=== PATIENT | female | born 1980 | race American Indian/Alaskan Native ===

== ENCOUNTER 2017-10-07 21:53 | Inpatient (IN) | payer OTHER ==
--- NOTE | 2017-10-07 23:27 | XRay Report ---
FINAL REPORT PROCEDURE: XR CHEST ROUTINE 2V TECHNIQUE: PA and lateral chest radiographs were obtained. CPT 03636 HISTORY: CHEST PAIN COMPARISON: No prior studies are available for comparison. FINDINGS: Heart: Normal. Mediastinum/Vessels: Normal. Lungs/Pleural space: Normal. Bony thorax: Moderate degree dextroscoliosis is noted involving the thoracolumbar spine. Other: IMPRESSION: Normal examination.
[2017-10-07 23:31] LABS: Anion Gap 19 mmol/L; BUN/Creatinine Ratio 16; Blood Urea Nitrogen 11 mg/dL (7-17); Calcium 8.8 mg/dL (8.4-10.2); Carbon Dioxide 21 mmol/L (22-30); Chloride 100.8 mmol/L (98-107); Glucose 79 mg/dL (65-100); Potassium 4.1 mmol/L (3.6-5.0); Sodium 137 mmol/L (137-145)
[2017-10-07 23:46] LABS: Eosinophils % (Auto) 0.5 % (0.0-4.3); Hematocrit 34.9 % (30.3-42.9); Hemoglobin 11.2 gm/dl (10.1-14.3); Mean Corpuscular HGB Conc 32 % (30-34); Mean Corpuscular Hemoglobin 26 pg (28-32); Mean Corpuscular Volume 82 fl (79-97); Platelet Count 377 K/mm3 (140-440); Red Blood Count 4.25 M/mm3 (3.65-5.03); White Blood Count 7.4 K/mm3 (4.5-11.0)
--- NOTE | 2017-10-08 10:17 | Emergency Department Report ---
HPI - General Chief Complaint: Chest Pain Time Seen by Provider: 10/08/17 09:59 - HPI HPI: Room 19 The patient is a 37-year-old female presenting with a chief complaint chest pain. The patient states she drove to [place] from [place] yesterday and approximate 4.5 hours into the trip she developed substernal and left upper chest tightness that has been intermittent and associated with shortness of breath. Patient denies nausea/vomiting or diaphoresis. Patient does admit to pleuritic component. The patient states last week she was diagnosed with strep throat given her symptoms of sore throat headache chills and fever. Patient completed a course of Levaquin. The patient states she's never had a stress test or cardiac catheterization Location: Chest Duration: Intermittent since yesterday Quality: Tightness Severity: Currently 0/10 Modifying factors: [see above] Context: [see above] Mode of transportation: [not driving] ED Past Medical Hx - Past Medical History Previous Medical History?: No - Surgical History Past Surgical History?: No - Family History Family history: no significant - Social History Smoking Status: Never Smoker Substance Use Type: None (denies illicit drug use), Alcohol (occasional) - Medications Home Medications: Home Medications Medication Instructions Recorded Confirmed Last Taken Type No Known Home Medications [No 10/08/17 10/08/17 Unknown History Reported Home Medications] ED Review of Systems ROS: Stated complaint: CP Other details as noted in HPI Constitutional: denies: diaphoresis Respiratory: shortness of breath Cardiovascular: chest pain Gastrointestinal: denies: nausea, vomiting Physical Exam - Physical Exam Vital Signs: Vital Signs 10/07/17 10/08/17 10/08/17 22:14 01:37 07:32 Temperature 98.3 F 97.8 F 98.4 F Pulse Rate 79 73 71 Respiratory 16 14 16 Rate Blood Pressure 136/85 127/74 137/87 Blood Pressure [Left] O2 Sat by Pulse 100 100 Oximetry 10/08/17 10/08/17 08:53 08:59 Temperature 98.2 F Pulse Rate 77 86 Respiratory 19 18 Rate Blood Pressure Blood Pressure 133/67 [Left] O2 Sat by Pulse 100 100 Oximetry Physical Exam: GENERAL: The patient is well-developed well-nourished female lying on stretcher not appearing to be in acute distress. [] HEENT: Normocephalic. Atraumatic. Extraocular motions are intact. Patient has moist mucous membranes. NECK: Supple. Trachea midline CHEST/LUNGS: Clear to auscultation. There is no respiratory distress noted. HEART/CARDIOVASCULAR: Regular. There is no tachycardia. There is no gallop rub or murmur. ABDOMEN: Abdomen is soft, nontender. Patient has normal bowel sounds. There is no abdominal distention. SKIN: There is no rash. There is no edema. There is no diaphoresis. NEURO: The patient is awake, alert, and oriented. The patient is cooperative. The patient has normal speech MUSCULOSKELETAL: There is no evidence of acute injury. ED Course Vital Signs 10/07/17 10/08/17 10/08/17 22:14 01:37 07:32 Temperature 98.3 F 97.8 F 98.4 F Pulse Rate 79 73 71 Respiratory 16 14 16 Rate Blood Pressure 136/85 127/74 137/87 Blood Pressure [Left] O2 Sat by Pulse 100 100 Oximetry 10/08/17 10/08/17 08:53 08:59 Temperature 98.2 F Pulse Rate 77 86 Respiratory 19 18 Rate Blood Pressure Blood Pressure 133/67 [Left] O2 Sat by Pulse 100 100 Oximetry ED Medical Decision Making - Lab Data Result diagrams: 10/07/17 22:55 10/07/17 22:55 Laboratory Tests 10/07/17 10/07/17 10/08/17 22:55 22:55 01:18 WBC 7.4 RBC 4.25 Hgb 11.2 Hct 34.9 MCV 82 MCH 26 L MCHC 32 RDW 16.0 H Plt Count 377 Lymph % (Auto) 43.5 H [place] % (Auto) 9.5 H Eos % (Auto) 0.5 Baso % (Auto) 1.0 Lymph # 3.2 Moca # 0.7 Eos # 0.0 Baso # 0.1 Seg Neutrophils % 45.5 Seg Neutrophils # 3.4 Sodium 137 Potassium 4.1 Chloride 100.8 Carbon Dioxide 21 L Anion Gap 19 BUN 11 Creatinine 0.7 Estimated GFR > 60 BUN/Creatinine Ratio 16 Glucose 79 Calcium 8.8 Troponin T < 0.010 < 0.010 10/08/17 04:35 WBC RBC Hgb Hct MCV MCH MCHC RDW Plt Count Lymph % (Auto) [place] % (Auto) Eos % (Auto) Baso % (Auto) Lymph # Moca # Eos # Baso # Seg Neutrophils % Seg Neutrophils # Sodium Potassium Chloride Carbon Dioxide Anion Gap BUN Creatinine Estimated GFR BUN/Creatinine Ratio Glucose Calcium Troponin T < 0.010 - EKG Data -: EKG Interpreted by Me EKG shows normal: sinus rhythm Rate: normal - EKG Data When compared to previous EKG there are: previous EKG unavailable Interpretation: other (no ischemic changes seen) - Radiology Data Radiology results: report reviewed (VQ scan discussed with radiologist), image reviewed (chest x-ray, VQ scan) interpreted by me: Chest x-ray-no focal infiltrates, no pneumothorax VQ scan (discussed with radiologist) -normal - Differential Diagnosis ACS, PE, pericarditis, GERD Critical care attestation.: If time is entered above; I have spent that time in minutes in the direct care of this critically ill patient, excluding procedure time. ED Disposition Clinical Impression: Chest pain Disposition: 09 OP ADMIT IP TO THIS HOSP Is pt being admited?: Yes Does the pt Need Aspirin: Yes Condition: Fair Instructions: Chest Pain (ED) Referrals: PRIMARY CARE, [Primary Care Provider] - 3-5 Days Time of Disposition: 13:11 (hospitalist paged (Dr. Hutchison))
[2017-10-08] MEDS ORDERED: NITRO-BID 2% TP ONE (10:20)
[2017-10-08] MEDS ORDERED: ASPIRIN PO ONE (10:21)
--- NOTE | 2017-10-08 13:12 | Nuclear Medicine Report ---
VENTILATION PERFUSION SCAN INDICATION: Chest pain, pleurisy. COMPARISON: None similar. FINDINGS: VQ scan performed in anterior, posterior, lateral and oblique projections. 5 mCi of technetium 99m MAA was used for the perfusion assessment while 15 millicuries of Xenon 133 was utilized for the ventilation portion of the study. Ventilation images demonstrate uniform radiotracer distribution throughout both lungs. The perfusion matches the ventilation without large lobar or definite segmental defects. Available chest radiograph from earlier today demonstrates scoliosis without acute lung disease. CONCLUSION: No scintigraphic evidence of pulmonary embolism. Thank you for the opportunity to participate in this patient's care.
[2017-10-08] MEDS ORDERED: NITROSTAT SL PRN (13:21)
[2017-10-08] MEDS ORDERED: ZOFRAN IV PRN (13:21)
[2017-10-08] MEDS ORDERED: TYLENOL PO PRN (13:21)
[2017-10-08] MEDS ORDERED: BABY ASPIRIN PO STA (13:21)
[2017-10-08] MEDS ORDERED: MORPHINE IV PRN (13:21)
[2017-10-08] MEDS ORDERED: DULCOLAX PR PRN (13:21)
[2017-10-08] MEDS ORDERED: MILK OF MAGNESIA PO PRN (13:21)
[2017-10-08] MEDS ORDERED: SODIUM CHLORIDE FLUSH SYRINGE 10 ML IV PRN (13:21)
[2017-10-08] MEDS ORDERED: PROVENTIL IH PRN (13:21)
--- NOTE | 2017-10-08 13:25 | History and Physical Report ---
History of Present Illness Chief complaint: My chest hurts History of present illness: 37 YO Female with Obesity presents to ED for evaluation. Pt states that she experienced pain in her chest. The patient states that she drove to [place] from [place] yesterday. Pt states that she developed acute onset pain in her chest approximately 4.5 hours into the trip. Pain 2-4/10, substernal, localized to the left upper chest, intermittent,associated with shortness of breath. Shorrtness of breath is worse with deep breathing. Patient denies nausea/vomiting or diaphoresis, recent ill contacts, productive cough, BRBPR, unintentional weight loss, night sweats, skin rash, individual/family history of DVT/PE. Past History Past Medical History: other (Obesity) Past Surgical History: No surgical history, Other (reviewed) Social history: single. denies: smoking, alcohol abuse, prescription drug abuse Family history: no significant family history (reviewed) Medications and Allergies Allergies Allergy/AdvReac Type Severity Reaction Status Date / Time Iodinated Contrast- Oral and Allergy Anaphylaxis Verified 10/07/17 22:12 IV Dye sulfamethoxazole Allergy Anaphylaxis Verified 10/07/17 22:12 [From ] trimethoprim [From ] Allergy Anaphylaxis Verified 10/07/17 22:12 Home Medications Medication Instructions Recorded Confirmed Last Taken Type No Known Home Medications [No 10/08/17 10/08/17 Unknown History Reported Home Medications] Review of Systems Constitutional: no weight loss, no weight gain, no fever, no chills Ears, nose, mouth and throat: no ear pain, no ear discharge, no tinnitis, no decreased hearing, no nose pain Breasts: no change in shape, no swelling, no mass Cardiovascular: chest pain, shortness of breath, no orthopnea, no palpitations, no rapid/irregular heart beat, no edema, no syncope, no claudication, no high blood pressure, no leg edema Respiratory: no cough, no cough with sputum, no excessive sputum, no hemoptysis , no shortness of breath Gastrointestinal: no nausea, no vomiting, no diarrhea Genitourinary Female: no pelvic pain, no flank pain, no menorrhagia, no dysuria , no urinary frequency, no urgency Rectal: no pain, no incontinence, no bleeding Musculoskeletal: no neck stiffness, no neck pain, no shooting arm pain, no arm numbness/tingling, no low back pain, no shooting leg pain, no leg numbness/ tingling Integumentary: no rash, no pruritis, no redness, no sores, no wounds, no jaundice Neurological: no transient paralysis, no paralysis, no weakness, no parathesias , no numbness, no tingling, no seizures, no syncope Psychiatric: no memory loss, no change in sleep habits, no sleep disturbances, no insomnia, no hypersomnia, no change in appetite, no change in libido Endocrine: no cold intolerance, no heat intolerance, no polyphagia, no excessive thirst, no polydipsia, no polyuria Hematologic/Lymphatic: no easy bruising, no easy bleeding Allergic/Immunologic: no urticaria, no allergic rhinitis, no wheezing Exam - Constitutional Vitals: Temp Pulse Resp BP Pulse Ox 98.2 F 67 16 119/66 100 10/08/17 08:59 10/08/17 11:14 10/08/17 11:00 10/08/17 11:14 10/08/17 10:15 General appearance: Present: mild distress, well-nourished - EENT Eyes: Present: PERRL ENT: hearing intact, clear oral mucosa - Neck Neck: Present: supple, normal ROM - Respiratory Respiratory effort: normal Respiratory: bilateral: CTA - Cardiovascular Heart Sounds: Present: S1 & S2. Absent: rub, click - Extremities Extremities: pulses symmetrical, No edema Peripheral Pulses: within normal limits - Abdominal General gastrointestinal: Present: soft, non-tender, non-distended, normal bowel sounds Female genitourinary: Present: normal - Integumentary Integumentary: Present: clear, warm, dry - Musculoskeletal Musculoskeletal: gait normal, strength equal bilaterally - Psychiatric Psychiatric: appropriate mood/affect, intact judgment & insight - Neurologic Neurologic: CNII-XII intact, moves all extremities Results - Labs CBC & Chem 7: 10/08/17 13:33 10/07/17 22:55 Labs: Abnormal lab results 10/07/17 10/07/17 Range/Units 22:55 22:55 MCH 26 L (28-32) pg RDW 16.0 H (13.2-15.2) % Lymph % (Auto) 43.5 H (13.4-35.0) % [place] % (Auto) 9.5 H (0.0-7.3) % Carbon Dioxide 21 L (22-30) mmol/L Assessment and Plan - Patient Problems (1) ACS (acute coronary syndrome) Current Visit: Yes Status: Acute Plan to address problem: Admit to telemetry: serial cardiac enzymes, ekg, echo, stress test, cardiology consulted, VQ scan to evaluate for PE, (2) DVT prophylaxis Current Visit: Yes Status: Acute
[2017-10-08 13:57] LABS: Basophils % (Auto) 0.4 % (0.0-1.8); Eosinophils % (Auto) 0.7 % (0.0-4.3); Hematocrit 31.1 % (30.3-42.9); Hemoglobin 10.3 gm/dl (10.1-14.3); Mean Corpuscular HGB Conc 33 % (30-34); Mean Corpuscular Hemoglobin 27 pg (28-32); Mean Corpuscular Volume 82 fl (79-97); Platelet Count 317 K/mm3 (140-440); Red Cell Distribution Width 15.6 % (13.2-15.2); White Blood Count 6.3 K/mm3 (4.5-11.0)
[2017-10-08 16:10] LABS: Anion Gap 19 mmol/L; BUN/Creatinine Ratio 13; Blood Urea Nitrogen 8 mg/dL (7-17); Calcium 8.7 mg/dL (8.4-10.2); Carbon Dioxide 23 mmol/L (22-30); Chloride 101.3 mmol/L (98-107); Glucose 92 mg/dL (65-100); Potassium 3.9 mmol/L (3.6-5.0); Sodium 139 mmol/L (137-145)
[2017-10-08] MEDS: PEPCID PO SCH (21:32)
[2017-10-09] MEDS ORDERED: LEXISCAN IV ONE ×2 (08:08→08:19)
[2017-10-09] MEDS: PEPCID PO SCH ×2 (10:27→22:33)
--- NOTE | 2017-10-09 11:37 | Consultation ---
History of Present Illness Consult date: 10/09/17 Requesting physician: COREY LEONE Consult reason: chest pain History of present illness: This is a 37-year-old -[place] female is in active the [place] who was driving back home and had chest pain midsternal nonradiating. Patient been treated for bronchitis patient received medication ED and currently is chest pain-free patient denies any history of exertional chest pain or shortness of breath patient has no syncope.Patient denies nausea/vomiting or diaphoresis, recent ill contacts, productive cough, BRBPR, unintentional weight loss, night sweats, skin rash, individual/family history of DVT/PE. Past History Past Medical History: other (Obesity) Past Surgical History: No surgical history, Other (tubal ligation) Social history: single. denies: smoking, alcohol abuse, prescription drug abuse Family history: no significant family history (reviewed) Medications and Allergies Allergies Allergy/AdvReac Type Severity Reaction Status Date / Time Iodinated Contrast- Oral and Allergy Anaphylaxis Verified 10/07/17 22:12 IV Dye sulfamethoxazole Allergy Anaphylaxis Verified 10/07/17 22:12 [From ] trimethoprim [From ] Allergy Anaphylaxis Verified 10/07/17 22:12 Home Medications Medication Instructions Recorded Confirmed Last Taken Type No Known Home Medications [No 10/08/17 10/08/17 Unknown History Reported Home Medications] Active Meds: Active Medications Acetaminophen (Tylenol) 650 mg PO Q4H PRN PRN Reason: Pain MILD(1-3)/Fever >100.5/SNOW Albuterol (Proventil) 2.5 mg IH Q4HRT PRN PRN Reason: Shortness Of Breath Bisacodyl (Dulcolax) 10 mg DC QDAY PRN PRN Reason: Constipation unrelieved by MOM Famotidine (Pepcid) 20 mg PO BID [place] Last Admin: 10/09/17 10:27 Dose: 20 mg Influenza Virus Vaccine Quadrival (Fluarix Quad [id number](36 Mos+) 0.5 ml IM .ONCE ONE Stop: 10/09/17 12:01 Magnesium Hydroxide (Milk Of Magnesia) 30 ml PO Q4H PRN PRN Reason: Constipation Morphine Sulfate (Morphine) 2 mg IV Q4H PRN PRN Reason: Pain , Severe (7-10) Nitroglycerin (Nitrostat) 0.4 mg SL Q5M PRN PRN Reason: Chest Pain Ondansetron HCl (Zofran) 4 mg IV Q8H PRN PRN Reason: N/V unrelieved by Reglan Sodium Chloride (Sodium Chloride Flush Syringe 10 Ml) 10 ml IV PRN PRN PRN Reason: LINE FLUSH Review of Systems All systems: negative (HPI) Physical Examination Vital Signs Temp Pulse Resp BP Pulse Ox 98.3 F 79 16 136/85 100 10/07/17 22:14 10/07/17 22:14 10/07/17 22:14 10/07/17 22:14 10/07/17 22:14 General appearance: no acute distress, well-nourished HEENT: Positive: PERRL, Mucus Membranes Moist Neck: Positive: neck supple, trachea midline Cardiac: Positive: Reg Rate and Rhythm, S1/S2. Negative: Audible Murmur Lungs: Positive: clear to auscultation, Normal Breath Sounds Neuro: Positive: Grossly Intact Abdomen: Positive: Soft, Active Bowel Sounds. Negative: Tender, Distended Female genitourinary: deferred Skin: Positive: Clear Incision: Cardiac Cath Site Musculoskeletal: No Pain, Normal Range of Motion Extremities: Present: normal. Absent: edema Results 10/08/17 13:33 10/08/17 13:33 Lipids 10/08/17 Range/Units 13:33 Triglycerides 56 (2-149) mg/dL Cholesterol 166 (50-199) mg/dL HDL Cholesterol 64 H (40-59) mg/dL Cholesterol/HDL Ratio 2.59 % CBC 10/08/17 Range/Units 13:33 WBC 6.3 (4.5-11.0) K/mm3 RBC 3.80 (3.65-5.03) M/mm3 Hgb 10.3 (10.1-14.3) gm/dl Hct 31.1 (30.3-42.9) % Plt Count 317 (140-440) K/mm3 Lymph # 3.1 (1.2-5.4) K/mm3 [place] # 0.6 (0.0-0.8) K/mm3 Eos # 0.0 (0.0-0.4) K/mm3 Baso # 0.0 (0.0-0.1) K/mm3 Comprehensive Metabolic Panel 10/08/17 Range/Units 13:33 Sodium 139 (137-145) mmol/L Potassium 3.9 (3.6-5.0) mmol/L Chloride 101.3 (98-107) mmol/L Carbon Dioxide 23 (22-30) mmol/L BUN 8 (7-17) mg/dL Creatinine 0.6 L (0.7-1.2) mg/dL Glucose 92 (65-100) mg/dL Calcium 8.7 (8.4-10.2) mg/dL - Imaging and Cardiology Stress echo: pending Echo: pending Assessment and Plan Chest pain atypical possible bronchitis Obesity Recommend: v/q scan being negative do a treadmill 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
[2017-10-09] MEDS ORDERED: Fluarix Quad 2017-2018(36 MOS+ IM ONE (12:00)
--- NOTE | 2017-10-09 14:02 | Progress Note ---
Assessment and Plan Assessment and plan: Chest pain - Cardiac enzymes are negative, EKG NSR - We couldn't do a stress test this morning`because of NM perfusion was done this morning - She will have stress test tomorrow and will be discharged if negative. DVT Prophylaxis - lovenox Disposition - Will be D/C tomorrow History Interval history: Patient is seen and evaluated this morning, chest pain is getting better, has mild chest tightness. Hospitalist Physical - Physical exam Narrative exam: Not in cardiopulmonary distress. The patient is obese. Vital signs as documented. Head exam is unremarkable. No scleral icterus . Neck is without jugular venous distension, thyromegaly, or carotid bruits. Lungs are clear to auscultation. Cardiac exam reveals regular rate and Rhythm. First and second heart sounds normal. No murmurs, rubs or gallops. Abdominal exam reveals normal bowel sounds, no masses, no organomegaly and no aortic enlargement. Extremities are nonedematous and both femoral and pedal pulses are normal. TOOL TENDER: Alert and oriented 3. No focal weakness. - Constitutional Vitals: Temp Pulse Resp BP Pulse Ox 98.5 F 76 16 118/64 98 10/09/17 11:13 10/09/17 11:13 10/09/17 11:13 10/09/17 11:13 10/09/17 11:13 General appearance: Present: no acute distress, well-nourished Results - Labs CBC & Chem 7: 10/08/17 13:33 10/08/17 13:33 Labs: Laboratory Last Values WBC 6.3 K/mm3 (4.5-11.0) 10/08/17 13:33 RBC 3.80 M/mm3 (3.65-5.03) 10/08/17 13:33 Hgb 10.3 gm/dl (10.1-14.3) 10/08/17 13:33 Hct 31.1 % (30.3-42.9) 10/08/17 13:33 MCV 82 fl (79-97) 10/08/17 13:33 MCH 27 pg (28-32) L 10/08/17 13:33 MCHC 33 % (30-34) 10/08/17 13:33 RDW 15.6 % (13.2-15.2) H 10/08/17 13:33 Plt Count 317 K/mm3 (140-440) 10/08/17 13:33 Lymph % (Auto) 48.8 % (13.4-35.0) H 10/08/17 13:33 [place] % (Auto) 9.9 % (0.0-7.3) H 10/08/17 13:33 Eos % (Auto) 0.7 % (0.0-4.3) 10/08/17 13:33 Baso % (Auto) 0.4 % (0.0-1.8) 10/08/17 13:33 Lymph # 3.1 K/mm3 (1.2-5.4) 10/08/17 13:33 [place] # 0.6 K/mm3 (0.0-0.8) 10/08/17 13:33 Eos # 0.0 K/mm3 (0.0-0.4) 10/08/17 13:33 Baso # 0.0 K/mm3 (0.0-0.1) 10/08/17 13:33 Seg Neutrophils % 40.2 % (40.0-70.0) 10/08/17 13:33 Seg Neutrophils # 2.5 K/mm3 (1.8-7.7) 10/08/17 13:33 Sodium 139 mmol/L (137-145) 10/08/17 13:33 Potassium 3.9 mmol/L (3.6-5.0) 10/08/17 13:33 Chloride 101.3 mmol/L (98-107) 10/08/17 13:33 Carbon Dioxide 23 mmol/L (22-30) 10/08/17 13:33 Anion Gap 19 mmol/L 10/08/17 13:33 BUN 8 mg/dL (7-17) 10/08/17 13:33 Creatinine 0.6 mg/dL (0.7-1.2) L 10/08/17 13:33 Estimated GFR > 60 ml/min 10/08/17 13:33 BUN/Creatinine Ratio 13 % 10/08/17 13:33 Glucose 92 mg/dL (65-100) 10/08/17 13:33 Calcium 8.7 mg/dL (8.4-10.2) 10/08/17 13:33 Troponin T < 0.010 ng/mL (0.00-0.029) 10/08/17 16:19 Triglycerides 56 mg/dL (2-149) 10/08/17 13:33 Cholesterol 166 mg/dL (50-199) 10/08/17 13:33 LDL Cholesterol Direct 91 mg/dL (50-130) 10/08/17 13:33 HDL Cholesterol 64 mg/dL (40-59) H 10/08/17 13:33 Cholesterol/HDL Ratio 2.59 % 10/08/17 13:33
[2017-10-10 05:05] VITALS: BP 116/60
[2017-10-10 07:10] LABS: Anion Gap 20 mmol/L; BUN/Creatinine Ratio 17; Blood Urea Nitrogen 10 mg/dL (7-17); Calcium 8.7 mg/dL (8.4-10.2); Carbon Dioxide 23 mmol/L (22-30); Chloride 102.9 mmol/L (98-107); Glucose 80 mg/dL (65-100); Potassium 4.5 mmol/L (3.6-5.0); Sodium 141 mmol/L (137-145)
[2017-10-10] MEDS ORDERED: LEXISCAN IV ONE ×2 (08:19→08:24)
[2017-10-10] MEDS: PEPCID PO SCH (09:53)
--- NOTE | 2017-10-10 10:20 | Progress Note ---
Assessment and Plan Chest pain atypical possible gi Bronchitis Obesity Recommend in view of normal LV function echocardiogram and negative nuclear perfusion study patient may be discharged from a cardiovascular point of view Subjective Date of service: 10/10/17 Principal diagnosis: chest pain Interval history: Patient is chest pain-free walked on treadmill for 9 minutes with chest pain during stress test Objective Vital Signs Temp Pulse Resp BP BP Pulse Ox 10/10/17 06:33 80 10/10/17 05:02 98.9 F 68 17 116/60 98 10/10/17 01:12 97.9 F 79 17 104/60 99 10/10/17 01:07 16 10/09/17 20:42 98.4 F 74 20 110/65 98 10/09/17 16:44 98.6 F 79 16 104/58 96 10/09/17 16:42 98.7 F 75 16 104/71 98 10/09/17 11:13 98.5 F 76 16 118/64 98 - Physical Examination HEENT: Positive: PERRL, Mucus Membranes Moist Neck: Positive: neck supple, trachea midline Cardiac: Positive: Reg Rate and Rhythm Lungs: Positive: clear to auscultation Neuro: Positive: Grossly Intact Abdomen: Positive: Soft, Active Bowel Sounds. Negative: Tender, Distended Skin: Positive: Clear Incision: Cardiac Cath Site Musculoskeletal: No Pain, Normal Range of Motion Extremities: Present: normal. Absent: edema - Labs and Meds Comprehensive Metabolic Panel 10/10/17 Range/Units 06:17 Sodium 141 (137-145) mmol/L Potassium 4.5 (3.6-5.0) mmol/L Chloride 102.9 (98-107) mmol/L Carbon Dioxide 23 (22-30) mmol/L BUN 10 (7-17) mg/dL Creatinine 0.6 L (0.7-1.2) mg/dL Glucose 80 (65-100) mg/dL Calcium 8.7 (8.4-10.2) mg/dL - Imaging and Cardiology Exercise stress test: report reviewed (negative treadmill stress EKG good excess capacity no retail advertising account executive response excised normal myocardial perfusionsignificant ischemia with normal LV function) Echo: report reviewed (normal LV function. Regurgitation is noted) - Telemetry EKG Rhythm: Sinus Rhythm
--- NOTE | 2017-10-10 11:57 | Discharge Summary ---
Providers - Providers Date of Admission: 10/08/17 13:22 Attending physician: DULCE MARIA RODRIGUEZ MD 10/08/17 Consult to Cardiac Rehabilitation [CONS] Routine Reason For Exam: Phase I 10/08/17 13:22 Consult to Cardiology [CONS] Routine Consulting Provider: BURT JEWELL Reason For Exam: acs Primary care physician: DAVID HURTADO Hospitalization Reason for admission: chest pain Condition: Stable Hospital course: 37 YO Female with Obesity presents to ED for evaluation. Pt states that she experienced pain in her chest. The patient states that she drove to [place] from [place] yesterday. Pt states that she developed acute onset pain in her chest approximately 4.5 hours into the trip. Pain 2-4/10, substernal, localized to the left upper chest, intermittent,associated with shortness of breath. Shorrtness of breath is worse with deep breathing. Patient denies nausea/vomiting or diaphoresis, recent ill contacts, productive cough, BRBPR, unintentional weight loss, night sweats, skin rash, individual/family history of DVT/PE. Patient on admission proceeded to have a stress test following cardiology evaluation. Stress test was read as normal with a normal LV function on echocardiogram. Patient's pain also improved. I did advise continue follow-up with primary care physician. VQ scan Dopplers were negative for pulmonary embolism. Patient was also noted to have acute bronchitis based on clinical evidence of cough with a chest tightness. This was treated with oral antibiotics and the patient was stable for discharge at this point thank you Discharge diagnosis Chest pain-likely costochondritis secondary to bronchitis Acute bronchitis Disposition: TO HOME OR SELFCARE Time spent for discharge: 35 mins Core Measure Documentation - Palliative Care Palliative Care/ Comfort Measures: Not Applicable - Core Measures Any of the following diagnoses?: none - VTE Discharge Requirements Deep Vein Thrombosis/Pulmonary Embolism Present on Admission: No Exam - Physical Exam Narrative exam: VITAL SIGNS: Reviewed. GENERAL: The patient appeared well nourished and normally developed. Vital signs as documented. HEAD: No signs of head trauma. EYES: Pupils are equal. Extraocular motions intact. EARS: Hearing grossly intact. MOUTH: Oropharynx is normal. NECK: No adenopathy, no JVD. CHEST: Chest with clear breath sounds bilaterally. No wheezes, rales, or rhonchi. CARDIAC: Regular rate and rhythm. S1 and S2, without murmurs, gallops, or rubs. VASCULAR: No Edema. Peripheral pulses normal and equal in all extremities. ABDOMEN: Soft, without detectable tenderness. No sign of distention. No rebound or guarding, and no masses palpated. Bowel Sounds normal. MUSCULOSKELETAL: Good range of motion of all major joints. Extremities without clubbing, cyanosis or edema. NEUROLOGIC EXAM: Alert and oriented x 3. No focal sensory or strength deficits. Speech normal. Follows commands. PSYCHIATRIC: Mood normal. SKIN: No rash or lesions. - Constitutional Vitals: Temp Pulse Resp BP Pulse Ox 98.9 F 80 17 116/60 98 10/10/17 05:02 10/10/17 06:33 10/10/17 05:02 10/10/17 05:02 10/10/17 05:02 Plan Activity: advance as tolerated, fall precautions Diet: regular Follow up with: [facility] [Provider Group] - 7 Days PRIMARY CARE, [Referring] - 3-5 Days Prescriptions: Amoxicillin/Potassium Clav [Augmentin 875-125 Tablet] 1 each PO BID #10 tablet
--- NOTE | 2017-10-10 12:58 | Treadmill Report ---
NUCLEAR PERFUSION STUDY REASON FOR STUDY: Chest pain. READING PHYSICIAN: Mike Pop MD IMAGING PROTOCOL: The patient received 10 mCi of Technetium 99m Tetrofosmin for resting image and 28 mCi of Technetium 99m Tetrofosmin for stress imaging. The imaging for the whole procedure was completed 30-90 minutes following the initial injection of Technetium 99m tetrofosmin. The SPECT imaging in the 180 degree arc was performed in the right anterior oblique projection. Computerized reconstruction of the images was performed for analysis. IMAGING RESULTS: Normal cavity size from stress to rest. Normal distribution of radionuclide in the anterior, inferior, septal, and apical regions. Gated SPECT, EF 59 % no wall motion abnormality. The patient exercised on Raimundo protocol for 9 minutes. SUMMARY: 1. Negative treadmill EKG. 2. Good exercise capacity 9 minutes Raimundo protocol. 3. No exaggerated BP response to exercise. 4. There is normal rest and stress myocardial perfusion scan. No significant stress ischemia. No wall motion abnormality. Gated SPECT, EF 59%. JOB# [id number] SANYAM/NTS
== END 2017-10-10 14:44 | disposition home or self-care (01) | DRG 202 ==
LOC: ED 21:53 → 4A 10-08 13:22
PROVIDERS: ADMIT Internal Medicine; ATTEND Internal Medicine
PROC: 3E0234Z Introduction of Serum, Toxoid and Vaccine into Muscle, Percutaneous Approach (ICD-10-PCS; principal; 2017-10-09)
DX: J20.9 Acute bronchitis, unspecified (principal); I24.9 Acute ischemic heart disease, unspecified; M94.0 Chondrocostal junction syndrome [Tietze]; E66.9 Obesity, unspecified; Z68.30 Body mass index [BMI] 30.0-30.9, adult; Z88.2 Allergy status to sulfonamides; Z91.041 Radiographic dye allergy status; Z23 Encounter for immunization
CPT/HCPCS: 36415; 71020; 78452; 78582; 80048; 80061; 82962; 84484; 85025; 90686; 93005; 93010; 93017; 93306; A9502; A9540; A9558; J2785